=== PATIENT | male | born 1970 | race Caucasian/White ===

== ENCOUNTER 2018-03-04 17:22 | Inpatient (IN) | payer BC, OTHER ==
[~2018-03-04] VITALS: Ht 167.6 cm; Wt 99.0 kg
[2018-03-04 17:10] VITALS: BP 146/91
[2018-03-04] MEDS ORDERED: No home meds (17:52)
[2018-03-04] MEDS ORDERED: PROMETHAZINE 25 MG/ML, 1ML ONE (17:57)
[2018-03-04] MEDS ORDERED: PROMETHAZINE 25 MG/ML, 1ML IM PRN (18:30)
[2018-03-04] MEDS ORDERED: HYDROcodone/APAP 5/325 TABLET PO PRN (19:00)
[2018-03-04] MEDS ORDERED: morphine SULFATE 10 MG/ML, 1ML IV PRN (19:00)
[2018-03-04] MEDS ORDERED: PROMETHAZINE 25MG TABLET PO PRN (19:00)
[2018-03-04] MEDS ORDERED: ONDANSETRON 2MG/ML, 2ML IV PRN (19:00)
[2018-03-04] MEDS: D5%-0.45NACL+KCL 20MEQ 1,000 ML IV SCH (20:12)
[2018-03-04] MEDS: AMOXICILLIN/CLAV 875-125MG TABLET PO SCH (20:12)
[2018-03-04 21:45] VITALS: BP 146/89
[2018-03-05] VITALS: BP 129/74
[2018-03-05] MEDS: D5%-0.45NACL+KCL 20MEQ 1,000 ML IV SCH ×2 (03:43→11:40)
[2018-03-05 08:23] VITALS: BP 133/80
[2018-03-05] MEDS: AMOXICILLIN/CLAV 875-125MG TABLET PO SCH (09:44)
== END 2018-03-05 14:25 | disposition home or self-care (01) | DRG 156 ==
LOC: 4NOR 17:26 → DCLOUNGE 03-05 14:04
PROVIDERS: ADMIT Otolaryngology; ATTEND Otolaryngology
DX: J34.2 Deviated nasal septum (principal); J32.8 Other chronic sinusitis; I10 Essential (primary) hypertension; E66.9 Obesity, unspecified; J34.89 Other specified disorders of nose and nasal sinuses; Z68.35 Body mass index [BMI] 35.0-35.9, adult
CPT/HCPCS: G0378; J2550; J3480